=== PATIENT | male | born 1970 | race Caucasian/White ===

== ENCOUNTER 2020-03-28 10:03 | Emergency (ER) | payer BC ==
[~2020-03-28] VITALS: Ht 182.9 cm; Wt 117.9 kg
[2020-03-28] MEDS ORDERED: LIPITOR10 MG (10:31)
[2020-03-28] MEDS ORDERED: METFORMIN HCL1000 MG PO (10:31)
[2020-03-28] MEDS ORDERED: BACTRIM DS TAB1 EACH PO (11:08)
== END 2020-03-28 11:21 | disposition home or self-care (01) ==
LOC: ED 10:03
DX: L03.115 Cellulitis of right lower limb (principal); E78.00 Pure hypercholesterolemia, unspecified; E11.9 Type 2 diabetes mellitus without complications; Z87.891 Personal history of nicotine dependence; Z79.899 Other long term (current) drug therapy; Z79.84 Long term (current) use of oral hypoglycemic drugs; Z88.8 Allergy status to other drugs, medicaments and biological substances
CPT/HCPCS: 99283